=== PATIENT | female | born 1945 | race Caucasian/White ===

== ENCOUNTER 2016-04-29 11:55 | Emergency (ER) | payer OTHER, MEDICARE ==
--- NOTE | 2016-04-29 12:06 | ED GENERAL ADULT ---
History of Present Illness General Chief Complaint: General Adult Stated Complaint: SENT IN BY [facility] Source: patient Exam Limitations: no limitations Vital Signs & Intake/Output Vital Signs & Intake/Output Vital Signs Date Time Temp Pulse Resp B/P Pulse O2 O2 Flow FiO2 Ox Delivery Rate 04/29 1315 93 Nasal 2.0L Cannula 04/29 1242 90 Room Air 04/29 1240 59 20 157/75 90 Room Air 04/29 1201 97.7 78 24 156/94 89 Room Air Allergies Coded Allergies: prochlorperazine (PARALYSIS YRS AGO 06/20/15) Triage Note: PER PT SENT BY WALK IN FOR ? PNA. HAD XR COMES WITH DISC. PER PT STARTED WEDNESDAY WITH ASTHMA LIKE SYMPTOMS, PROGRESSED TO FEVER AND COUGH. TEMP AT [facility] 101. ARRIVES TO TRIAGE 97.9 Triage Nurses Notes Reviewed? yes Onset: Gradual Duration: day(s): (5) Timing: remote history Injury Environment: home Severity: moderate Severity Numbers: 7 No Modifying Factors: none Associated Symptoms: cough HPI: Patient is a 70-year-old female presenting to the emergency department with chief complaint of wheezing, intermittently productive cough has been going on for the past 5 days. She was seen and evaluated at walk-in clinic earlier today and they advised her to come to the emergency department because she has pneumonia. Patient reports that she has seasonal allergies and seasonal asthma. She takes an albuterol inhaler as needed. Denies ever being intubated or admitted for asthma denies any nausea vomiting or chills. Intermittent tactile fevers over the weekend. Denies abdominal pain chest pain or shortness of breath. Nothing seems to make symptoms better or worse. (ANGELIA VELEZ) Reconcile Medications Albuterol Sulfate 2.5 MG/0.5 ML VIAL.NEB 1 Vial INH/MARKIE Q4 SOB Amiodarone HCl 200 MG TABLET 1 TAB PO DAILY HEART (Reported) Amoxicillin/Potassium Clav (Augmentin 875-125 Tablet) 875 MG-125 MG TABLET 1 TAB PO BID PNEUMONIA Cholecalciferol (Vitamin D3) (Vitamin D3) 2,000 UNIT TABLET 2 TAB PO DAILY SUPPLEMENT (Reported) Diltiazem HCl (Diltiazem ER) 360 MG CAPSULE.ER 1 CAP PO DAILY HEART (Reported ) Hydrochlorothiazide 12.5 MG CAPSULE 1 CAP PO DAILY WATER PILL (Reported) Lactobacillus Acidophilus (Probiotic) 10 BILLION CELL CAPSULE 1 CAP PO DAILY GI (Reported) Levothyroxine Sodium 50 MCG TABLET 1 TAB PO DAILY AC THYROID (Reported) Metoprolol Tartrate 25 MG TABLET 1 TAB PO BID HEART (Reported) Crawford-3 Fatty Acids/Fish Oil (Fish Oil 1,000 MG Capsule) 340 MG-1,000 MG CAPSULE 1 CAP PO TID SUPPLEMENT (Reported) Pravastatin Sodium 10 MG TABLET 1 TAB PO DAILY CHOLESTEROL (Reported) Robitussin AC (Guaifenesin-Codeine Syrup) 200 MG-20 MG/10 ML LIQUID 5 ML PO Q6HR PRN COUGH Warfarin Sodium (Coumadin) 2.5 MG TABLET 1 TAB PO 1700 BLOOD THINNER ( Reported) (ASHTYN BELTRAN MD) Past History Travel History Traveled to [place] past 21 day No Medical History Any Pertinent Medical History? see below for history Neurological: NONE EENT: NONE Cardiovascular: AFIB Respiratory: SEASONAL ASTHMA Gastrointestinal: NONE Hepatic: NONE Renal: NONE Musculoskeletal: NONE Psychiatric: NONE Endocrine: NONE History of MRSA: No History of VRE: No History of CDIFF: No Pneumonia Vaccine: 12/14/11 Influenza Vaccine: 12/13/12 Surgical History Surgical History: non-contributory Psychosocial History Who do you live with Patient/Self What is your primary language Uzbek Tobacco Use: Never used Family History Family History, If Any: BROTHER (atrial fibrillation at age 66, of pancreatic cancer recently). FATHER (hypertension). Hx Contributory? No (ANGELIA VELEZ) Review of Systems Review of Systems Constitutional: Reports: malaise. Comments Review of systems: See HPI, All other systems negative. Constitutional, no chills fever or weight loss HEENT: No visual changes no sore throat Cardiovascular: No chest pain ,palpitation , orthopnea or ankle swelling Skin, no jaundice no rashes Respiratory: No dyspnea OR hemoptysis GI: No nausea no vomiting : No dysuria No hematuria Muscle skeletal: no back pain, no neck pain, Neurologic: No numbness no confusion Psych: No stress anxiety Immunology: No splenectomy or history of AIDS (ANGELIA VELEZ) Physical Exam Physical Exam General Appearance: well developed/nourished, no apparent distress, alert, awake , comfortable Comments: Well-developed well-nourished person in no acute distress HEENT: Normal EENT exam, extraocular motion intact, no nystagmus. Pupils equally round and reactive to light and accommodation. Nose is atraumatic. External auditory canal and Tympanic membranes clear. Pharynx normal. No swelling or edema. Neck: Supple, no lymphadenopathy, normal range of motion without pain or tenderness Back: Nontender, no CVA tenderness. Full range of motion Cardiovascular: Regular rate and rhythms no murmurs rubs or gallops, normal JVP Respiratory: Chest nontender. No respiratory distress.diffuse wheezing to auscultation bilaterally but diminished lung sounds in the left base. Extremity: No edema Neuro: Alert oriented x3 Skin: No appreciable rash on exposed skin, skin is warm and dry. Psych: Mood and affect is normal, memory and judgment is normal. Core Measures ACS in differential dx? No CVA/TIA Diagnosis: No Severe Sepsis Present: No Septic Shock Present: No (ANGELIA VELEZ) Progress Differential Diagnoses I considered the following diagnoses in my evaluation of the patient: Pneumonia , bronchitis, upper respiratory infection, sinusitis, asthma exacerbation, COPD exacerbation Plan of Care: Orders Procedure Date/time Status AEROSOL (GEN) 04/29 1320 Complete AEROSOL (GEN) 04/29 1315 Complete Add-on Test (ER Only) 04/29 1242 Active BLOOD CULTURE 04/29 1207 Active TROPONIN LEVEL 04/29 1207 Complete MAGNESIUM 04/29 1207 Complete LACTIC ACID 04/29 1207 Complete COMPREHENSIVE METABOLIC PANEL 04/29 1207 Complete CBC WITHOUT DIFFERENTIAL 04/29 1207 Complete EKG 04/29 1207 Active Laboratory Tests 04/29/16 1306: Anion Gap 11, Estimated GFR > 60, BUN/Creatinine Ratio 27.1 H, Glucose 104 H, Lactic Acid 1.2, Calcium 8.8, Magnesium 1.8, Total Bilirubin 1.5 H, AST 58 H, ALT 68 H, Alkaline Phosphatase 65, Troponin I 0.04, Total Protein 6.7, Albumin 3.8, Globulin 2.9, Albumin/Globulin Ratio 1.3, CBC w Diff NO MAN DIFF REQ, RBC 4.63, MCV 88.3, MCH 29.4, RDW 13.9, MPV 7.8, Gran % 81.5 H, Lymphocytes % 11.1 L, Monocytes % 7.1, Eosinophils % 0, Basophils % 0.3, Absolute Granulocytes 4.9, Absolute Lymphocytes 0.7 L, Absolute Monocytes 0.4, Absolute Eosinophils 0, Absolute Basophils 0, PUBS MCHC 33.3 Microbiology 04/29 1330 BLOOD: Blood Culture - RECD 04/29 1306 BLOOD: Blood Culture - RECD Diagnostic Imaging: Viewed by Me: Radiology Read. Radiology Impression: ll lobe pna (outpt cd) Initial ED EKG: NSR (63 bpm) Comments: Arrival patient is slightly hypoxic with movement To 89% on Room Air. She Has Diffuse Wheezing. Patient's X-Ray from the Urgent Care Shows Left Lower Lobe Pneumonia. Patient Treated with IV Rocephin and Azithromycin. Given Breathing Treatment and Solu-Medrol. Patient placed on 2 L supplemental O2 for comfort. Ambulatory oxygen saturation is now around 92-94%. Patient not complaining about any shortness of breath. She'll be discharged home on Augmentin, given a prescription for a nebulizer machine, given cough medication and she will follow up with her PCP. Patient nontoxic. Discussed with and he agrees with plan. (ANGELIA VELEZ) Departure Departure Time of Disposition: 1431 Disposition: HOME OR SELF CARE Condition: Stable Clinical Impression Primary Impression: Pneumonia Qualifiers: Pneumonia type: due to unspecified organism Laterality: left Lung location: lower lobe of lung Qualified Code: J18.1 - Lobar pneumonia, unspecified organism Referrals: Isabell QUIROS MD Additional Instructions: Follow-up with your primary care physician call to make an appointment. Take Augmentin as prescribed for pneumonia. Use nebulizer treatment as directed. Take Robitussin before meals to help with cough. Return for worsening symptoms or concerns. Departure Forms: Customer Survey General Discharge Information Prescriptions: Current Visit Scripts Amoxicillin/Potassium Clav (Augmentin 875-125 Tablet) 1 TAB PO BID #20 TAB Albuterol Sulfate 1 Vial INH/MARKIE Q4 #60 Vial Robitussin AC (Guaifenesin-Codeine Syrup) 5 ML PO Q6HR PRN COUGH #150 ML (ANGELIA VELEZ) PA/FULFILLMENT MAIL CLERK Co-Sign Statement Statement: ED Attending supervision documentation- x I saw and evaluated the patient. I have also reviewed all the pertinent lab results and diagnostic results. I agree with the findings and the plan of care as documented in the PA's/FULFILLMENT MAIL CLERK's documentation. [] I have reviewed the ED Record and agree with the PA's/FULFILLMENT MAIL CLERK's documentation. [] Additions or exceptions (if any) to the PAs/FULFILLMENT MAIL CLERK's note and plan are summarized below: [] (DEVIN GONZALEZ,ASHTYN) Critical Care Note Critical Care Note Critical Care Time: 30-74 min (KELLY TELLEZ,ANGELIA)
[2016-04-29 13:16] LABS: ABSOLUTE BASOPHIL COUNT 0 /CUMM (0.0-0.2); ABSOLUTE EOSINOPHIL COUNT 0 /CUMM (0.0-0.7); ABSOLUTE GRANULOCYTE CT 4.9 /CUMM (1.4-6.5); ABSOLUTE LYMPH COUNT 0.7 /CUMM (1.2-3.4); ABSOLUTE MONOCYTE COUNT 0.4 /CUMM (0.10-0.60); BASOPHIL % 0.3 % (0.0-2.0); EOSINOPHIL % 0 % (0-5); GRANULOCYTE % 81.5 % (42.2-75.2); HEMATOCRIT 40.8 % (37-47); MEAN CORPUSCULAR HGB 29.4 PG (27.0-31.0); MEAN CORPUSCULAR HGB CONC 33.3 G/DL (33.0-37.0); MEAN CORPUSCULAR VOLUME 88.3 FL (81.0-99.0); MEAN PLATELET VOLUME 7.8 FL (7.4-10.4); PLATELET COUNT 220 /CUMM (130-400); RBC DISTRIBUTION WIDTH 13.9 % (11.5-14.5); RED BLOOD CELL CT 4.63 /CUMM (4.20-5.40)
[2016-04-29] MEDS ORDERED: AUGMENTIN 875-1 EACH PO (14:34)
[2016-04-29] MEDS ORDERED: ALBUTEROL2.5 MG/0.5 INH/SOL (14:34)
[2016-04-29] MEDS ORDERED: GUAIFENESIN-COD10 ML PO (14:34)
[2016-04-29] MEDS ORDERED: METOPROLOL TART25 M1 PO (14:39)
[2016-04-29] MEDS ORDERED: DILTIAZEM ER360 M1 PO (14:39)
[2016-04-29] MEDS ORDERED: PRAVASTATIN SOD10 M2 PO (14:40)
[2016-04-29] MEDS ORDERED: AMIODARONE HCL200 M1 PO (14:40)
[2016-04-29] MEDS ORDERED: LEVOTHYROXINE50 MCG PO (14:40)
[2016-04-29] MEDS ORDERED: COUMADIN2.5 M1 PO (14:40)
[2016-04-29] MEDS ORDERED: VITAMIN D32000 UNI1 PO (14:41)
[2016-04-29] MEDS ORDERED: HYDROCHLOROTH12.5 M3 PO (14:41)
[2016-04-29] MEDS ORDERED: FISH OIL 1,0001 EACH PO (14:42)
[2016-04-29] MEDS ORDERED: PROBIOTIC1 EACH PO (14:43)
[2016-04-29 14:47] VITALS: BP 126/62
== END 2016-04-29 15:01 ==
LOC: ERH 11:55
PROVIDERS: Physician Assistant
DX: J18.9 Pneumonia, unspecified organism (principal)
CPT/HCPCS: 1263; 87040; 93005; 93010; 96374; 96375; J0456; J0696; J2930; J7060